=== PATIENT | female | born 1960 | race Caucasian/White ===

== ENCOUNTER 2021-01-03 09:12 | Emergency (ER) | payer OTHER ==
[~2021-01-03] VITALS: Ht 165.1 cm; Wt 68.0 kg
[2021-01-03] MEDS ORDERED: LIPITOR40 M1 PO (09:20)
== END 2021-01-03 15:11 | disposition home or self-care (01) ==
LOC: ER 09:12
DX: S00.03XA Contusion of scalp, initial encounter (principal); W01.198A Fall on same level from slipping, tripping and stumbling with subsequent striking against other object, initial encounter; Y93.01 Activity, walking, marching and hiking; Y92.480 Sidewalk as the place of occurrence of the external cause; Y99.8 Other external cause status